=== PATIENT | female | born 1940 | race Caucasian/White ===

== ENCOUNTER 2017-07-30 07:30 | Inpatient (IN) ==
[~2017-07-30 07:30] MED LIST: ACETAMINOPHEN 500 MG TABLET PO ONE; DEXAMETHASONE 4 MG/ML INJECTION IVP ONE; FAMOTIDINE PB 20 MG/50 ML BAG IV ONE; LIDOCAINE 1% (10mg/ml) 2mL INJ PF SDV ID ONE; MELOXICAM 15 MG TABLET PO ONE; METOCLOPRAMIDE 10mg/2ml INJECTION IVP ONE; NOZIN NASAL SWAB NAS ONE; ONDANSETRON 4 MG/2 ML INJECTION IVP ONE; TRANEXAMIC ACID 1,000 MG in NS 100 ML IV ONE
[2017-07-30] MEDS ORDERED: EPINEPHrine PF 0.25 MG, BUPIVACAINE 0.25% PF 30 ML, MORPHINE SULFATE 15 MG, KETOROLAC I... OPSITE ONE (08:00)
[2017-07-30 08:14] VITALS: BMI 22.5
[2017-07-30] MEDS: LR 1,000 ML IV SCH ×2 (09:03→11:27)
--- NOTE | 2017-07-30 09:54 | Anesthesia Preoperative Report ---
Anesthesia Preoperative Record - Date and Time Date: 07/30/17 Preoperative Diagnosis: Rt TKA M17.11 Proposed Procedure: right TKA NPO Since Date: 07/30/17 NPO Since Time: 05:00 Allergies/Adverse Reactions: Allergies Allergy/AdvReac Type Severity Reaction Status Date / Time No Known Allergies Allergy Verified 07/30/17 08:22 - Vital Signs Vital Signs: Temperature 97.4 F 07/30/17 08:24 Pulse Rate 71 07/30/17 08:25 Respiratory Rate 16 07/30/17 08:24 Blood Pressure 161/77 H 07/30/17 08:24 Pulse Oximetry 96 07/30/17 08:24 Height and Weight: Height 1.66 m Weight 62.4 kg Body Mass Index 22.5 - Medications Inpatient Medications: Current Medications Cefazolin Sodium (Kefzol) 2 g IVP PREOP ONE Stop: 07/30/17 10:31 Lactated Ringer's (Lactated Ringers) 1,000 mls @ 50 mls/hr IV .Q20H JOSE M Last Admin: 07/30/17 09:03 Dose: 50 mls/hr Sodium Chloride (Iv Flush) 10 - 80 ml IV PRN PRN PRN Reason: Flushing Home Medications: Home Medications Medication Instructions Recorded Confirmed Type Multivitamin [Multi-Day Vitamins] 1 tab PO DAILY #0 tab 03/24/16 07/30/17 History Propylene Glycol/Peg 400 [Systane 1 drop EACH EYE BIDPRN PRN #0 ml 03/24/16 History 0.3-0.4% Eye Drops] alendronate 70 mg tablet 70 mg PO Q7D 07/08/17 07/30/17 History Is Patient on Beta Flaquita?: No - Medical History Respiratory: DENIES: Sleep Apnea Cardiovascular: Reports: High Cholesterol Neuro/Musculoskeletal: Reports: Other (osteoporosis) Other History: Reports: Anesthesia Reactions (hx n/v), Blood Transfusions ( after giving ) - Surgical History HEENT Surgeries: Reports: Tonsillectomy GI Surgery/Treatments: Reports: Colonoscopy Musculoskeletal Surgery/Tx: Reports: Knee Arthroscopy (right), Total Knee Replacement (Lt TKA -2015), Other (Edward bunionectomy; thumb surgery) Reproductive Surgery/Treatment: Reports: Section (x2) - Social History Smoking Status: Never smoker Substance Use Type: does not use Alcohol Intake: never Alcohol Intake Frequency: does not drink - Pertinent Findings EKG: Sinus Rhythm - Physical Exam Respiratory Exam: Present: lungs clear Cardiovascular Exam: Present: regular rate and rhythm, no murmur - Airway Assessment Mallampati Score: II TMD: 3 Fingerbreadths Neck Extension: good Teeth: patial upper dentures, chipped teeth/crowns Overall Assessment: no airway concerns - ASA ASA Score: 2 - Plan Regional/Trunk Block: Spinal Peripheral Nerve Block: Saphenous-Right - Discussion Discussion: Discussed risks/options/alternatives of anesthesia and questions answered. Patient consents. Nursing pain assessment noted. Present for Discussion: spouse Attestation Statement: Prior to the delivery of any anesthetic medication, I examined the patient, developed the plan, obtained the patient's consent and discussed the risk and benefits of the procedure with the patient/guardian. - Additional Information Seen by Anesthesia: Yes
[2017-07-30] MEDS ORDERED: VANCOMYCIN 1,000 MG INJECTION ONE (10:06)
[2017-07-30] MEDS ORDERED: VANCOMYCIN 1,000 MG INJECTION IAR ONE (10:11)
[2017-07-30] MEDS ORDERED: CEFAZOLIN 1 G INJECTION IVP ONE (10:30)
[2017-07-30] MEDS ORDERED: PROPOFOL 500 MG/50 ML VIAL IV ONE (10:39)
[2017-07-30] MEDS ORDERED: GLYCOPYRROLATE 0.4 MG/2 ML INJECTION ONE (11:30)
--- NOTE | 2017-07-30 11:53 | Operative Note ---
- Procedure Preoperative Diagnosis: Right knee primary degenerative joint disease Postoperative Diagnosis: Same as preoperative diagnosis. Surgeon: Janay Tobin MD [place]: Pino Anderson Complications: None. Anesthesia: Spinal. Estimated Blood Loss: See Anesthesia Record. Fluids: Please see Anesthesia Record. Description of Procedure: Mrs. Lopez and her right knee were identified and marked in the preoperative holding area. She was brought back to the operating suite after a saphenous nerve block was placed in the preoperative holding area. Spinal anesthetic was administered and she was placed supine on the operating table. The right lower extremity was prepped and draped in my normal sterile fashion. Timeout was performed. The Daz 3d robot was used during the surgery. She has fixed varus deformity with a mild flexion contracture. A standard anterior midline incision followed by medial parapatellar arthrotomy was performed. Anterior fat pad and meniscus were removed. The patella was resurfaced to a size 32. Tibial and femoral arrays were placed both within the original incision. Checkpoints were then placed both in the femur and the tibia. The bone was then registered with the Daz 3d robot. Osteophytes were removed and gaps were captured both 90 and 0 with correction. The D[employer] 3d robotic software was used to manipulate components to achieve 19 mm gaps throughout. The Daz 3d robotic arm was then used to assist with the bone cuts. Posterior osteophytes and remaining meniscus were removed. Trial components were placed. We used a 3 femur and a 4 tibia with a 11 mm spacer. She was a touch tight in flexion with an 11 spacer after a partial release of the PCL she balanced out very well. She tracked well and was well balanced throughout range of motion. The tibia was stamped the proper rotation. Trial components fit well so we proceeded with a press-fit knee. Components were press-fit into place including 11 mm spacer. The knee was ranged one more time to ensure good stability, balance and patellar tracking. 1 g of vancomycin powder was then placed into the knee joint. The capsulotomy was then closed with #1 Vicryl. I then left my assistant passenger locomotive engineer to close the subcutaneous tissue with 2-0 Vicryl. Running 4-0 Monocryl will be used in the subcuticular layer. Dermabond will be used on the skin followed by sterile dressing. After drapes are removed patient will be taken to recovery room under the care of anesthesia.
[2017-07-30] MEDS ORDERED: ROPIVACAINE 0.5% (5mg/ml) 30ml INJ ONE (12:02)
--- NOTE | 2017-07-30 12:26 | Anesthesia Procedure Note ---
Peripheral Nerve Blockade - Procedure Physician: Kendall Tobin MD Date: 07/30/17 Surgical Procedure: tka Discussion: Discussed risks/options/alternatives of anesthesia and questions answered. Patient consents. Nursing pain assessment noted. Block Start: 12:20 Block Stop: 12:21 Blocked Employed: Adductor Canal Indication: Post-Operative Pain Approach: Right Side Confirmed Position: Supine Patient: Consent, Risks/Benefits Discussed, Informed, Post Block Act. Discussed IV Sedation: No Initial Vital Signs: Temperature 97.4 F 07/30/17 08:24 Temperature Source Axillary 07/30/17 08:24 Pulse Rate 64 07/30/17 08:24 Respiratory Rate 16 07/30/17 08:24 Blood Pressure 161/77 H 07/30/17 08:24 Blood Pressure Mean 105 07/30/17 08:24 Blood Pressure Position Supine 07/30/17 08:24 Pulse Oximetry 96 07/30/17 08:24 Oxygen Delivery Method 07/30/17 08:24 Post Vital Signs: Temperature 97.4 F 07/30/17 08:24 Pulse Rate 71 07/30/17 08:25 Respiratory Rate 16 07/30/17 08:24 Blood Pressure 161/77 H 07/30/17 08:24 Pulse Oximetry 96 07/30/17 08:24 Initial Pain Pain Score: 0 Post Block Pain Score: 0 Prep: Chlorhexadine/ETOH Ultrasound Used?: Yes - Injectate Ropivacaine (%): 0.5 Ropivacaine (mL): 20 Was Epi 1:200,000 Used?: No Injection: Injection made incrementally with constant monitoring and aspiration every ml
--- NOTE | 2017-07-30 12:26 | Anesthesia Postoperative Note ---
- Date and Time Date: 07/30/17 Time: 12:26 - Status Patient Participated in Evaluation: Patient Participated in Person Vital Signs: Temperature 97.4 F 07/30/17 08:24 Pulse Rate 71 07/30/17 08:25 Respiratory Rate 16 07/30/17 08:24 Blood Pressure 161/77 H 07/30/17 08:24 Pulse Oximetry 96 07/30/17 08:24 Respiratory Function: Airway Patent Cardiovascular Function: Regular Pulse EKG: Sinus Rhythm Mental Status: Alert and Oriented Pain Intensity: 0 Hydration: Taking PO Fluids, IV Infusing Complications During Recover: None Apparent - Follow-Up Instructions Instructions: Per Surgeon
--- NOTE | 2017-07-30 12:44 | XRay Report ---
Indication: postoperative image PROCEDURE: XR knee RT 2V: Encounter: Initial Comparison: July 08, 2017 Findings: Postoperative changes of right total knee replacement are seen. There is expected postoperative subcutaneous gas. No evidence of hardware failure or acute fracture. No retained radiopaque surgical instruments or sponges. Overlying material causing artifact. Impression: New right total knee prosthesis without evidence of immediate complication. .
[2017-07-30] MEDS ORDERED: NAPROXEN 220 MG TABLET PO PRN (12:55)
[2017-07-30] MEDS ORDERED: LORazepam 1 MG TABLET PO PRN (12:55)
[2017-07-30] MEDS ORDERED: NOZIN NASAL SWAB NAS ONE (12:55)
[2017-07-30] MEDS ORDERED: ONDANSETRON 4 MG/2 ML INJECTION IVP PRN (12:55)
[2017-07-30] MEDS ORDERED: Oxycodone *IR* 5 MG TABLET PO PRN (12:55)
[2017-07-30] MEDS ORDERED: DiphenhydrAMINE 50 MG/ML INJECTION IVP PRN (12:55)
[2017-07-30] MEDS ORDERED: DiphenhydrAMINE 25 MG CAPSULE PO PRN (12:55)
[2017-07-30] MEDS: NS 1,000 ML IV SCH (13:08)
[2017-07-30] MEDS: ACETAMINOPHEN 325 MG TABLET PO SCH ×3 (13:40→20:57)
[2017-07-30] MEDS: NOZIN NASAL SWAB NAS SCH ×2 (14:42→21:04)
[2017-07-30] MEDS ORDERED: SALINE FLUSH 10ml SYRINGE IV PRN (15:47)
[2017-07-30] MEDS: DEXAMETHASONE 4 MG/ML INJECTION IVP SCH (17:00)
[2017-07-30] MEDS: CEFAZOLIN 2 G in NS 100 ML IV SCH (18:19)
[2017-07-30] MEDS ORDERED: SENNOSIDES 8.6 MG TABLET PO SCH (21:00)
[2017-07-30] MEDS: DOCUSATE SODIUM 100 MG CAPSULE PO SCH (21:01)
[2017-07-30] MEDS: ASPIRIN *EC* 81 MG TABLET PO SCH (21:02)
[2017-07-31] MEDS: DEXAMETHASONE 4 MG/ML INJECTION IVP SCH (01:03)
[2017-07-31] MEDS: CEFAZOLIN 2 G in NS 100 ML IV SCH (02:31)
[2017-07-31] MEDS: NS 1,000 ML IV SCH (03:07)
[2017-07-31 07:35] VITALS: RESP 16
[2017-07-31] MEDS: NOZIN NASAL SWAB NAS SCH ×2 (08:30→13:30)
[2017-07-31] MEDS: ACETAMINOPHEN 325 MG TABLET PO SCH ×2 (08:30→13:30)
[2017-07-31] MEDS: ASPIRIN *EC* 81 MG TABLET PO SCH (08:30)
[2017-07-31] MEDS: DOCUSATE SODIUM 100 MG CAPSULE PO SCH (08:31)
[2017-07-31] MEDS ORDERED: POLYETHYL GLYCOL 3350 17gm PACKET PO SCH (09:00)
--- NOTE | 2017-07-31 09:19 | Orthopedic Progress Note ---
Date: Subjective/Severity of Illness: Emily is looking good this AM. She states the knee bends very smooth. No CP or SOA. Expects discharge later today. Orthopedic Objective PO Vital signs: Temperature 96.7 F L 07/31/17 07:34 Pulse Rate 69 07/31/17 07:34 Respiratory Rate 16 07/31/17 07:34 Blood Pressure 120/69 07/31/17 07:34 Pulse Oximetry 93 07/31/17 07:34 Height and Weight: Height 5 ft 5.5 in Weight 147 lb 7.828 oz Body Mass Index 22.5 - Constitutional General Appearance: Present: alert, cooperative, no acute distress - Respiratory Exam Present: non-labored - Extremities Exam Extremities: Present: pulses intact. Absent: calf tenderness - Surgical Site Incision: Mepilex dressing intact, dressing intact - Neurological Exam Present: no deficits - Psychiatric Exam Present: alert, normal affect - Labs Result Diagrams: 07/31/17 03:52 07/31/17 03:52 Abnormal lab results 07/31/17 07/31/17 Range/Units 03:52 03:52 Hgb 11.9 L (12-16) GM/DL Chloride 109 H (98-107) MEQ/L BUN 19.0 H (7-17) MG/DL BUN/Creatinine Ratio 27 H (6-26) RATIO Glucose 132 H (65-110) MG/DL H & H 07/31/17 Range/Units 03:52 Hgb 11.9 L (12-16) GM/DL Hct 36.5 (36-46) % Orthopedic Assessment and Plan (1) Primary osteoarthritis of right knee Status: Acute Assessment and Plan: Current anti-coagulation protocol for VTE prophylaxis. SCD's. PT/OT services to improve independent function. Discharge Planning per Case Management. - Anticoagulation Therapy Anticoagulation: ASA 81 mg PO BID x6 weeks Hospital Course Summary Disclaimer: The visit summary below is not to be considered part of the above Progress Note.
[2017-07-31 11:43] VITALS: BP 143/78; PULSE 77; TEMP 98.1; O2SAT 100
[2017-07-31] MEDS ORDERED: SENNOSIDES 8.6 MG TABLET PO PRN (12:05)
--- NOTE | 2017-07-31 13:48 | Discharge Summary ---
Orthopedic Discharge Info Date of admission: 07/30/17 08:03 Primary care physician: Terrie Franklin MD Attending Physician: Kendall Tobin MD Consults: 07/30/17 08:13 Consult to Anesthesiology [CONS] Routine Reason For Exam: Preoperative Assessment 07/30/17 12:55 Case Management Consult [CONS] Routine Reason For Exam: Discharge Planning DME-Walker [CONS] Routine Height: 5 ft 5.5 in Weight: 137 lb 9.095 oz Total Joint Outpatient Therapy [CONS] Routine Comment: Remove dressing in 2 weeks - Discharge Diagnosis (1) Primary osteoarthritis of right knee Status: Acute - Procedures Procedures: Procedures Replacement of Left Knee Joint with Synthetic Substitute, Cemented, Open Approach (04/22/16) Rt TKA 07/30/17. - Laboratory Result Diagrams: 07/31/17 03:52 07/31/17 03:52 Laboratory: Abnormal lab results 07/31/17 07/31/17 Range/Units 03:52 03:52 Hgb 11.9 L (12-16) GM/DL Chloride 109 H (98-107) MEQ/L BUN 19.0 H (7-17) MG/DL BUN/Creatinine Ratio 27 H (6-26) RATIO Glucose 132 H (65-110) MG/DL H & H 07/31/17 Range/Units 03:52 Hgb 11.9 L (12-16) GM/DL Hct 36.5 (36-46) % Orthopedic Discharge HPI - HPI Comments This patient was admitted for elective surgical tx of end stage degenerative joint disease that failed to respond to conservative treatment. Further details of this is found in the admission H&P. Orthopedic Hospital Course Hospital course: 07/31/17 13:45 After appropriate preoperative clearance and signing of operative consent, the patient was given IV antibiotics, according to orthopedic protocol. The patient was taken to the operating room and underwent Right total knee arthroplasty. Following surgery, antibiotics were discontinued less than 24 hours according to joint protocol. Appropriate anticoagulants were initiated and SCDs added for DVT prevention. The dressing was clean, dry, and intact. Pain control was obtained via multimodal approach. Bowel motivation addressed with scheduled and PRN medications. Early mobilization was initiated through PT services. Discharge arrangements made by a collaborative effort between the patient and Case Management. Follow-up is scheduled in 2-3 weeks. Discharge instructions given by orthopedic providers and nursing staff at discharge. Discharge condition was good. Ongoing care required?: No Discharge Plan - Med Rec/Dispo Referrals/Follow Up: Kendall Tobin MD [Physician] - 08/19/17 9:15 am Olivia Instructions: [facility] Postop Instructions Additional Instructions: ROXANNA SALGADO ON 08/03/2017 AT 2:00PM FOR PHYSICAL THERAPY EVAL. PHONE [phone] Prescriptions: New Aspirin *EC* [Ecotrin] 81 mg PO BID #100 tab Docusate Sodium [Colace] 100 mg PO BID capsule Naproxen [Aleve] 440 mg PO BID PRN tablet PRN Reason: Pain Acetaminophen [Tylenol] 650 mg PO QID tablet Milk of Magnesia [Mom] 30 ml PO DAILY udc Oxycodone *IR* [Roxicodone *Ir*] 5 - 15 mg PO Q3H PRN #60 tab PRN Reason: Breakthrough Pain Continue Multivitamin [Multi-Day Vitamins] 1 tab PO DAILY #0 tab Propylene Glycol/Peg 400 [Systane 0.3-0.4% Eye Drops] 1 drop EACH EYE BIDPRN PRN #0 ml PRN Reason: Dry Eyes alendronate 70 mg tablet 70 mg PO Q7D - Disposition 01 Discharged Home, Self-Care - Dismissal Complete Discharge Instructions are:: Complete
[2017-08-01] MEDS ORDERED: BISACODYL 10 MG SUPPOSITORY RECTALLY SCH (20:00)
== END 2017-07-31 14:10 | disposition home or self-care (01) | DRG 470 ==
LOC: SRG 08:03
PROVIDERS: ADMIT Orthopaedic Surgery; ATTEND Orthopaedic Surgery